=== PATIENT | female | born 1970 | race Caucasian/White ===

== ENCOUNTER 2025-02-23 10:48 | Outpatient (RCR) | payer MEDICAID, SELFPAY | END 2025-05-26 15:06 | disposition home or self-care (01) | LOC: HO.PT 10:48 | PROVIDERS: PCP Student in an Organized Health Care Education/Training Program; Visit Provider Nurse Practitioner Family | DX: M99.05 Segmental and somatic dysfunction of pelvic region (principal); Z53.8 Procedure and treatment not carried out for other reasons ==

== ENCOUNTER 2025-05-23 13:00 | Outpatient (RCR) | payer MEDICAID, SELFPAY | END 2025-07-04 13:51 | disposition home or self-care (01) | LOC: HO.PT 13:00 | PROVIDERS: PCP Student in an Organized Health Care Education/Training Program; Visit Provider Nurse Practitioner Family | DX: M99.05 Segmental and somatic dysfunction of pelvic region (principal) | CPT/HCPCS: 97110; 97112; 97140; 97162 ==